=== PATIENT | female | born 1950 | race Caucasian/White ===

== ENCOUNTER 2019-01-16 16:22 | Emergency (ER) | payer MEDICARE ==
[~2019-01-16] VITALS: Ht 167.6 cm; Wt 108.9 kg
--- OUTSIDE RECORDS SUMMARY | 2019-01-16 16:24 | XMS REPORT ---
Author Author Es Dawson Organization eClinicalWorks Address Unknown Phone Unavailable Care Team Providers Care Supervisor Shuttle Veneering Name Role Phone Es Dawson CP Unavailable Allergies No Known Allergies Problems Problem Type Condition Code Onset Dates Condition Status Problem Vitamin D deficiency E55.9 Active Problem Knee pain, right M25.561 Active Problem Hip pain M25.559 Active Problem Other termite exterminator helper (current) drug therapy Z79.899 Active Problem Osteoporosis M81.0 Active Problem Polyarthralgia M25.50 Active Problem Osteoarthritis M19.90 Active Problem Knee pain M25.569 Active Medications No Known Medications Results No Known Results Summary Purpose eClinicalWorks Submission
--- OUTSIDE RECORDS SUMMARY | 2019-01-16 16:24 | XMS REPORT ---
Author Author Es Dawson [facility] eClinicalWorks Address Unknown Phone Unavailable Care Team Providers Care Wind Turbine Blade Repair Technician Name Role Phone Es Dawson CP Unavailable Allergies, Adverse Reactions, Alerts Substance Reaction Event Type Stimulant Laxative Info Not Available Drug Allergy Phenobarbital Info Not Available Drug Allergy Problems Problem Type Condition Code Onset Dates Condition Status Assessment Osteoarthritis M19.90 Active Problem Vitamin D deficiency E55.9 Active Assessment Osteoporosis M81.0 Active Problem Knee pain, right M25.561 Active Problem Hip pain M25.559 Active Problem Other halfway (current) drug therapy Z79.899 Active Problem Osteoporosis M81.0 Active Problem Polyarthralgia M25.50 Active Problem Osteoarthritis M19.90 Active Problem Knee pain M25.569 Active Medications Medication Code System Code Instructions Start Date End Date Status Dosage Prolia ND 68193539781 60 MG/ML Subcutaneous every 6 months Active as directed Vitamin C ND 57948172861 500 MG Orally Active as directed Calcium + D ND 01640601870 315-200 MG-UNIT Orally as neede Active 1 tablet with meals Voltaren Gel NDC 0 1% Transdermal Four times a day Jun 08, 2017 Jun 05, 2018 Active apply to affected area Iron ND 15606055757 325 (65 Fe) MG Orally Once a day Active 1 tablet Vital Signs Date/Time: December 07, 2017 BMI 38.84 Index Weight 248 lbs Height 67 in Temperature 97.8 F Cardiac Monitoring Heart Rate 76 /min Blood Pressure Diastolic 70 mm Hg Blood Pressure Systolic 126 mm Hg Results No Known Results Summary Purpose eClinicalWorks Submission
--- OUTSIDE RECORDS SUMMARY | 2019-01-16 16:24 | XMS REPORT ---
Author Author Es Dawson Organization eClinicalWorks Address Unknown Phone Unavailable Care Team Providers Care Aeroplane Pilot Name Role Phone Es Dawson CP Unavailable Allergies No Known Allergies Problems Problem Type Condition Code Onset Dates Condition Status Problem Vitamin D deficiency E55.9 Active Problem Knee pain, right M25.561 Active Problem Hip pain M25.559 Active Problem Other long term care pharmacist (current) drug therapy Z79.899 Active Problem Osteoporosis M81.0 Active Problem Polyarthralgia M25.50 Active Problem Osteoarthritis M19.90 Active Problem Knee pain M25.569 Active Medications No Known Medications Results No Known Results Summary Purpose eClinicalWorks Submission
--- OUTSIDE RECORDS SUMMARY | 2019-01-16 16:24 | XMS REPORT ---
[facility] Address Unknown Phone Unavailable Care Team Providers Care Personnel Manager Name Role Phone Unavailable Unavailable Payers Payer Name Policy Type Policy Number Effective Date Expiration Date Problems This patient has no known problems. Allergies, Adverse Reactions, Alerts Allergy Name Allergy Type Status Severity Reaction(s) Onset Date Inactive Date Treating Clinician Comments phenobarbital DA Active ID 2016-02-07 00:00:00 chlorhexidine DA Active U 2016-02-07 00:00:00 CHLORAPREPS DA Active MO 2014-05-14 00:00:00 Medications This patient has no known medications. Results Test Description Test Time Test Comments Text Results Atomic Results Result Comments - XR L-SPINE 4 + VIEWS 2018-12-09 13:49:00 FAX: Fabrice Arrieta DO [phone] [place]: O St: REG FAX: Es Martinez MD [phone] Name: [facility] : 1950 Age/S: 68/F [address] Unit #: [id number] Loc: [place] [address] Phys: Es Dawson MD Acct: [id number] Dis Date: Status: REG CLI PHONE #: [phone] Exam Date: 12/09/2018 1038 FAX #: [phone] Reason: M81.0,M54.9,M19.0 EXAMS: CPT CODE: [id number] XR L-SPINE 4 + VIEWS 25145 COMPARISON: None provided. TECHNIQUE: 5 views of the lumbar spine FINDINGS: Bones: Five non-rib bearing lumbar vertebrae. Multilevel osteophytes. No compression fractures. No suspicious focal bone lesion. Alignment: No spondylolisthesis. Intervertebral discs: Multilevel disc height reduction. Facet joints: Multilevel hypertrophic changes in lumbar spine. SI joints: No significant abnormalities. Soft tissues: No abnormalities. IMPRESSION: Multilevel degenerative changes. No acute fractures. at 4333 Reported and signed by: Alfonso Graham M.D. CC: Fabrice Sharma DO; Es Dawson MD Technologist: Terrance NOVAK(R) Trnscrd Date/Time/By: 12/09/2018 (6418) : By: Reva Barnes Print D/T: S: 12/09/2018 (2894) PAGE 1 Signed Report
--- OUTSIDE RECORDS SUMMARY | 2019-01-16 16:24 | XMS REPORT ---
Author Author Es Dawson [facility] eClinicalWorks Address Unknown Phone Unavailable Care Team Providers Care Nurse Intern Name Role Phone Es Dawson Unavailable Allergies, Adverse Reactions, Alerts Substance Reaction Event Type Stimulant Laxative Info Not Available Drug Allergy Phenobarbital Info Not Available Drug Allergy Problems Problem Type Condition Code Onset Dates Condition Status Assessment Vitamin D deficiency E55.9 Active Problem Vitamin D deficiency E55.9 Active Assessment Osteoporosis M81.0 Active Assessment Knee pain, right M25.561 Active Problem Knee pain, right M25.561 Active Problem Hip pain M25.559 Active Problem Other manager long term care (current) drug therapy Z79.899 Active Problem Osteoporosis M81.0 Active Problem Polyarthralgia M25.50 Active Problem Osteoarthritis M19.90 Active Problem Knee pain M25.569 Active Medications Medication Code System Code Instructions Start Date End Date Status Dosage Vitamin D (Ergocalciferol) ND 18204687292 41592 UNIT Orally once a week Active 1 capsule Calcium + D ND 79213770823 315-200 MG-UNIT Orally as neede Active 1 tablet with meals Ergocalciferol NDC 08536790430 27783 UNIT Orally once a week Jun 08, 2017 Sep 06, 2017 Active 1 capsule Prolia ND 17854125632 60 MG/ML Subcutaneous every 6 months Active as directed Voltaren Gel NDC 0 1% Transdermal Four times a day Jun 08, 2017 Active apply to affected area Vital Signs Date/Time: Jun 08, 2017 BMI 37.68 Index Weight 240.6 lbs Height 67 in Temperature 97.4 F Cardiac Monitoring Heart Rate 74 /min Blood Pressure Diastolic 74 mm Hg Blood Pressure Systolic 126 mm Hg Results Name Result Date Reference Range Unit Abnormality Flag COMPREHENSIVE METABOLIC PANEL W/EGFR ----CALCIUM 9.4 47781925 8.6-10.4 mg/dL N ----CARBON DIOXIDE 28 20170606 20-31 mmol/L N ----ALT 11 85962933 6-29 U/L N ----CREATININE 0.93 20170606 0.50-0.99 mg/dL N ----AST 17 20170606 10-35 U/L N ----eGFR NON-AFR. TRISTANIAN 63 36242752 > OR=60 mL/min/1.73m2 N ----ALKALINE PHOSPHATASE 68 20170606 33-130 U/L N ----eGFR 73 20170606 > OR=60 mL/min/1.73m2 N ----BILIRUBIN, TOTAL 1.2 00977786 0.2-1.2 mg/dL N ----BUN/CREATININE RATIO NOT APPLICABLE 20170606 6-22 (calc) ----ALBUMIN/GLOBULIN RATIO 1.5 82456456 1.0-2.5 (calc) N ----SODIUM 142 20170606 135-146 mmol/L N ----GLOBULIN 2.7 96055373 1.9-3.7 g/dL (calc) N ----POTASSIUM 3.9 90146949 3.5-5.3 mmol/L N ----GLUCOSE 89 74508918 65-99 mg/dL N ----CHLORIDE 107 35951105 98-110 mmol/L N ----ALBUMIN 4.0 06248854 3.6-5.1 g/dL N ----UREA NITROGEN (BUN) 14 20170606 7-25 mg/dL N ----PROTEIN, TOTAL 6.7 20558112 6.1-8.1 g/dL N SED RATE BY MODIFIED WESTERGREN ----SED RATE BY MODIFIED WESTERGREN 19 32670327 < OR=30 mm/h N C-REACTIVE PROTEIN ----C-REACTIVE PROTEIN 0.8 63263102 <8.0 mg/L N CBC (INCLUDES DIFF/PLT) ----MCHC 31.8 54105009 32.0-36.0 g/dL L ----MCH 25.2 16442172 27.0-33.0 pg L ----PLATELET COUNT 320 04819644 140-400 Thousand/uL N ----RDW 13.8 08594436 11.0-15.0 % N ----BASOPHILS 0.6 90990291 % N ----ABSOLUTE NEUTROPHILS 4288 65378942 6100-5661 cells/uL N ----ABSOLUTE LYMPHOCYTES 1754 81862976 850-3900 cells/uL N ----MPV 9.5 80850789 7.5-12.5 fL N ----ABSOLUTE BASOPHILS 43 09861867 0-200 cells/uL N ----HEMATOCRIT 34.9 48039943 35.0-45.0 % L ----NEUTROPHILS 60.4 02231547 % N ----MCV 79.3 01723621 80.0-100.0 fL L ----RED BLOOD CELL COUNT 4.40 81708782 3.80-5.10 Million/uL N ----ABSOLUTE MONOCYTES 646 28446801 200-950 cells/uL N ----ABSOLUTE EOSINOPHILS 369 63443142 15-500 cells/uL N ----HEMOGLOBIN 11.1 54791183 11.7-15.5 g/dL L ----EOSINOPHILS 5.2 12687431 % N ----WHITE BLOOD CELL COUNT 7.1 85660509 3.8-10.8 Thousand/uL N ----LYMPHOCYTES 24.7 47674518 % N ----MONOCYTES 9.1 90874907 % N VITAMIN D, 25-HYDROXY, LC/MS/MS ----VITAMIN D, 25-OH, TOTAL 26 48856726 30-100 ng/mL L Summary Purpose eClinicalWorks Submission
--- OUTSIDE RECORDS SUMMARY | 2019-01-16 16:24 | XMS REPORT ---
Author Author Es Dawson [facility] eClinicalWorks Address Unknown Phone Unavailable Care Team Providers Care Traveling Representative Name Role Phone Es Dawson Unavailable Allergies, Adverse Reactions, Alerts Substance Reaction Event Type Stimulant Laxative Info Not Available Drug Allergy Phenobarbital Info Not Available Drug Allergy Problems Problem Type Condition Code Onset Dates Condition Status Assessment Osteoporosis M81.0 Active Problem Vitamin D deficiency E55.9 Active Assessment Right knee pain M25.561 Active Assessment Vitamin D deficiency E55.9 Active Assessment Other fdc (current) drug therapy Z79.899 Active Problem Knee pain, right M25.561 Active Problem Hip pain M25.559 Active Problem Other intermodal dispatcher (current) drug therapy Z79.899 Active Problem Osteoporosis M81.0 Active Problem Polyarthralgia M25.50 Active Problem Osteoarthritis M19.90 Active Problem Knee pain M25.569 Active Medications Medication Code System Code Instructions Start Date End Date Status Dosage Calcium + D [facility] 06112072009 315-200 MG-UNIT Orally as neede Active 1 tablet with meals Ergocalciferol [facility] 48771027705 88788 UNIT Orally once a week Jun 10, 2018 Active 1 capsule Prolia [facility] 20868863422 60 MG/ML Subcutaneous every 6 months Active as directed Vital Signs Date/Time: Jun 10, 2018 BMI 37.78 Index Weight 248.5 lbs Height 68 in Temperature 97.6 F Cardiac Monitoring Heart Rate 52 /min Blood Pressure Diastolic 70 mm Hg Blood Pressure Systolic 108 mm Hg Results Name Result Date Reference Range Unit Abnormality Flag VITAMIN D, 25-HYDROXY, LC/MS/MS ----VITAMIN D, 25-OH, TOTAL 22 43861789 30-100 ng/mL L CBC (INCLUDES DIFF/PLT) ----ABSOLUTE BASOPHILS 61 67508695 0-200 cells/uL N ----ABSOLUTE EOSINOPHILS 319 48560031 15-500 cells/uL N ----LYMPHOCYTES 24.5 33623870 % N ----NEUTROPHILS 62.6 22343218 % N ----PLATELET COUNT 271 47532419 140-400 Thousand/uL N ----EOSINOPHILS 4.2 29845246 % N ----RDW 12.3 05745410 11.0-15.0 % N ----MONOCYTES 7.9 59655739 % N ----MCHC 34.4 71906797 32.0-36.0 g/dL N ----MCH 29.1 61463694 27.0-33.0 pg N ----MCV 84.6 37921219 80.0-100.0 fL N ----ABSOLUTE NEUTROPHILS 4758 00385227 7706-7300 cells/uL N ----MPV 9.9 14756895 7.5-12.5 fL N ----ABSOLUTE MONOCYTES 600 26537401 200-950 cells/uL N ----ABSOLUTE LYMPHOCYTES 1862 25345791 850-3900 cells/uL N ----BASOPHILS 0.8 77229115 % N ----WHITE BLOOD CELL COUNT 7.6 21705401 3.8-10.8 Thousand/uL N ----RED BLOOD CELL COUNT 4.61 40760077 3.80-5.10 Million/uL N ----HEMOGLOBIN 13.4 26217721 11.7-15.5 g/dL N ----HEMATOCRIT 39.0 78310738 35.0-45.0 % N COMPREHENSIVE METABOLIC PANEL W/EGFR ----SODIUM 140 87611441 135-146 mmol/L N ----BUN/CREATININE RATIO NOT APPLICABLE 91243143 6-22 (calc) ----CHLORIDE 102 04342475 98-110 mmol/L N ----POTASSIUM 4.3 41676648 3.5-5.3 mmol/L N ----CALCIUM 9.2 98120654 8.6-10.4 mg/dL N ----PROTEIN, TOTAL 6.7 01773832 6.1-8.1 g/dL N ----CARBON DIOXIDE 30 53032823 20-32 mmol/L N ----ALBUMIN/GLOBULIN RATIO 1.3 69615457 1.0-2.5 (calc) N ----eGFR NON-AFR. BRAZILIAN 64 78812063 > OR=60 mL/min/1.73m2 N ----BILIRUBIN, TOTAL 1.2 20180606 0.2-1.2 mg/dL N ----eGFR 75 20180606 > OR=60 mL/min/1.73m2 N ----UREA NITROGEN (BUN) 16 20180606 7-25 mg/dL N ----ALBUMIN 3.8 20180606 3.6-5.1 g/dL N ----GLOBULIN 2.9 20180606 1.9-3.7 g/dL (calc) N ----CREATININE 0.91 20180606 0.50-0.99 mg/dL N ----ALT 8 20180606 6-29 U/L N ----GLUCOSE 114 20180606 65-139 mg/dL N ----ALKALINE PHOSPHATASE 103 20180606 33-130 U/L N ----AST 13 20180606 10-35 U/L N Summary Purpose eClinicalWorks Submission
--- OUTSIDE RECORDS SUMMARY | 2019-01-16 16:24 | XMS REPORT ---
Author Author Es Dawson Organization eClinicalWorks Address Unknown Phone Unavailable Care Team Providers Care Mapper Name Role Phone Es Dawson CP Unavailable Allergies No Known Allergies Problems Problem Type Condition Code Onset Dates Condition Status Problem Vitamin D deficiency E55.9 Active Problem Knee pain, right M25.561 Active Problem Hip pain M25.559 Active Problem Other usp (current) drug therapy Z79.899 Active Problem Osteoporosis M81.0 Active Problem Polyarthralgia M25.50 Active Problem Osteoarthritis M19.90 Active Problem Knee pain M25.569 Active Medications No Known Medications Results No Known Results Summary Purpose eClinicalWorks Submission
--- OUTSIDE RECORDS SUMMARY | 2019-01-16 16:24 | XMS REPORT ---
Author Author Es Dawson Organization eClinicalWorks Address Unknown Phone Unavailable Care Team Providers Care Financial Sales Assistant Name Role Phone Es Dawson CP Unavailable Allergies, Adverse Reactions, Alerts Substance Reaction Event Type Stimulant Laxative Info Not Available Drug Allergy Phenobarbital Info Not Available Drug Allergy Problems Problem Type Condition Code Onset Dates Condition Status Problem Osteoarthritis M19.90 Active Problem Vitamin D deficiency E55.9 Active Assessment Back pain M54.9 Active Assessment Osteoarthritis M19.90 Active Assessment Osteoporosis M81.0 Active Problem Other group home (current) drug therapy Z79.899 Active Problem Knee pain, right M25.561 Active Problem Back pain M54.9 Active Problem Osteoporosis M81.0 Active Problem Polyarthralgia M25.50 Active Problem Hip pain M25.559 Active Problem Knee pain M25.569 Active Medications Medication Code System Code Instructions Start Date End Date Status Dosage Diclofenac Sodium ND 73777383703 1 Active APPLY TO THE AFFECTED AREA FOUR TIMES DAILY FOR 30 DAYS Calcium + D ND 98856083297 315-200 MG-UNIT Orally as neede Active 1 tablet with meals Prolia ND 54080494275 60 MG/ML Subcutaneous every 6 months Active as directed Ergocalciferol ND 68061661770 41535 UNIT Orally once a week Jun 10, 2018 Active 1 capsule Vital Signs Date/Time: December 09, 2018 BMI 40.27 Index Weight 264.9 lbs Height 68 in Temperature 97.2 F Cardiac Monitoring Heart Rate 60 /min Blood Pressure Diastolic 76 mm Hg Blood Pressure Systolic 120 mm Hg Results No Known Results Summary Purpose eClinicalWorks Submission
--- OUTSIDE RECORDS SUMMARY | 2019-01-16 16:24 | XMS REPORT ---
Author Author Es Dawson Organization eClinicalWorks Address Unknown Phone Unavailable Care Team Providers Care Machine Room Engineer Name Role Phone Es Dawson CP Unavailable Allergies No Known Allergies Problems Problem Type Condition Code Onset Dates Condition Status Problem Vitamin D deficiency E55.9 Active Problem Knee pain, right M25.561 Active Problem Hip pain M25.559 Active Problem Other group home (current) drug therapy Z79.899 Active Problem Osteoporosis M81.0 Active Problem Polyarthralgia M25.50 Active Problem Osteoarthritis M19.90 Active Problem Knee pain M25.569 Active Medications Medication Code System Code Instructions Start Date End Date Status Dosage Vitamin D [facility] 06095492669 50,000 Orally Once a week November 29, 2018 Active 1 capsule Results No Known Results Summary Purpose eClinicalWorks Submission
--- OUTSIDE RECORDS SUMMARY | 2019-01-16 16:24 | XMS REPORT | Continuity of Care Document ---
Author Author [facility] Address Unknown Phone Unavailable Problems Problem Status Onset Date Classification Date Reported Comments Source Vitamin D deficiency Active Problem 12/13/2018 Carlos Eduardo Calderon Knee pain, right Active Problem 12/13/2018 Carlos Eduardo Calderon Hip pain Active Problem 12/13/2018 Carlos Eduardo Calderon Other rodent exterminator drug therapy Active Problem 12/13/2018 Carlos Eduardo Calderon Osteoporosis Active Diagnosis 12/13/2018 Carlos Eduardo Calderon Polyarthralgia Active Problem 12/13/2018 Carlos Eduardo Calderon Osteoarthritis Active Problem 12/13/2018 Carlos Eduardo Calderon Knee pain Active Problem 12/13/2018 Carlos Eduardo Calderon Right knee pain Active Diagnosis 06/18/2018 Carlos Eduardo Calderon Back pain Active Diagnosis 12/13/2018 Carlos Eduardo Calderon Medications Medication Details Route Status Patient Instructions Ordering Provider Order Date Source Vitamin D 1 capsule Orally Active 50,000 Orally Once a week [place] 11/29/2018 Carlos Eduardo Calderon Ergocalciferol 1 capsule Orally Active 78591 UNIT Orally once a week [place] 06/10/2018 Carlos Eduardo Calderon Voltaren Gel apply to affected area Transdermal Active 1% Transdermal Four times a day [place] 06/08/2017 Carlos Eduardo Calderon Ergocalciferol 1 capsule Orally Active 02916 UNIT Orally once a week [place] 06/08/2017 Carlos Eduardo Calderon Prolia as directed Subcutaneous Active 60 MG/ML Subcutaneous every 6 months [place] Carlos Eduardo Calderon Vitamin C as directed Orally Active 500 MG Orally [place] Carlos Eduardo Calderon Calcium + D 1 tablet with meals Orally Active 315-200 MG-UNIT Orally as neede [place] Carlos Eduardo Calderon Iron 1 tablet Orally Active 325 (65 Fe) MG Orally Once a day [place] Carlos Eduardo Calderon Vitamin D (Ergocalciferol) 1 capsule Orally Active 42170 UNIT Orally once a week [place] Carlos Eduardo Calderon Diclofenac Sodium APPLY TO THE AFFECTED AREA FOUR TIMES DAILY FOR 30 DAYS NA Active 1 [place] Carlos Eduardo Calderon Allergies, Adverse Reactions, Alerts Substance Category Reaction Severity Reaction type Status Date Reported Comments Source Stimulant Laxative Adverse Reaction Info Not Available Adverse Reaction Active 12/09/2018 Carlos Eduardo Calderon Phenobarbital Adverse Reaction Info Not Available Adverse Reaction Active 12/09/2018 Carlos Eduardo Calderon Immunizations Immunization Date Given Site Status Last Updated Comments Source Results Order Name Results Value Reference Range Date Interpretation Comments Source Vital Signs Vital Sign Value Date Comments Source Weight 264.9 12/09/2018 Carlos Eduardo Calderon Height 68 12/09/2018 Carlos Eduardo Calderon Temperature Oral (F) 97.2 F 12/09/2018 Carlos Eduardo Calderon Heart Rate 60 12/09/2018 Carlos Eduardo Calderon Diastolic (mm Hg) 76 12/09/2018 Carlos Eduardo Calderon Systolic (mm Hg) 120 12/09/2018 Carlos Eduardo Calderon Weight 248.5 06/10/2018 Carlos Eduardo Calderon Height 68 06/10/2018 Carlos Eduardo Calderon Temperature Oral (F) 97.6 F 06/10/2018 Carlos Eduardo Calderon Heart Rate 52 06/10/2018 Carlos Eduardo Calderon Diastolic (mm Hg) 70 06/10/2018 Carlos Eduardo Calderon Systolic (mm Hg) 108 06/10/2018 Carlos Eduardo Calderon Weight 248 12/07/2017 Carlos Eduardo Calderon Height 67 12/07/2017 Carlos Eduardo Calderon Temperature Oral (F) 97.8 F 12/07/2017 Carlos Eduardo Calderon Heart Rate 76 12/07/2017 Carlos Eduardo Calderon Diastolic (mm Hg) 70 12/07/2017 Carlos Eduardo Calderon Systolic (mm Hg) 126 12/07/2017 Carlos Eduardo Calderon Weight 240.6 06/08/2017 Carlos Eduardo Calderon Height 67 06/08/2017 Carlos Eduardo Calderon Temperature Oral (F) 97.4 F 06/08/2017 Carlos Eduardo Calderon Heart Rate 74 06/08/2017 Carlos Eduardo Calderon Diastolic (mm Hg) 74 06/08/2017 Carlos Eduardo Calderon Systolic (mm Hg) 126 06/08/2017 Carlos Eduardo Calderon Encounters Location Location Details Encounter Type Encounter Number Reason For Visit Attending Provider ADM Date DC Date Status Source Procedures Procedure Code Date Perfomer Comments Source
--- OUTSIDE RECORDS SUMMARY | 2019-01-16 16:24 | XMS REPORT ---
Author Author Es Dawson Organization eClinicalWorks Address Unknown Phone Unavailable Care Team Providers Care Break Up Worker Name Role Phone Es Dawson CP Unavailable Allergies No Known Allergies Problems Problem Type Condition Code Onset Dates Condition Status Problem Vitamin D deficiency E55.9 Active Problem Knee pain, right M25.561 Active Problem Hip pain M25.559 Active Problem Other termite control servicer (current) drug therapy Z79.899 Active Problem Osteoporosis M81.0 Active Problem Polyarthralgia M25.50 Active Problem Osteoarthritis M19.90 Active Problem Knee pain M25.569 Active Medications No Known Medications Results No Known Results Summary Purpose eClinicalWorks Submission
--- NOTE | 2019-01-16 17:32 | Diagnostic Imaging Report ---
Right complete knee. CPT CODE: 14612. INDICATION: Unable to bear weight COMPARISON: None FINDINGS: No evidence of acute fracture or dislocation. Moderate narrowing and osteophytosis of the patellofemoral compartment and medial compartment. There is prominence of the tibial spines. Mild narrowing of the lateral compartment. No joint effusion. An ossicle in the anterior aspect of the joint space measures 5 mm and is suggestive of a loose body. There is no evidence of donor site. IMPRESSION: Moderate osteoarthritis. No joint effusion. Suspected loose body. No acute fracture or dislocation. Signed by: Dr. Jaren Goldstein MD on 01/16/2019 5:29 PM
[2019-01-16 18:22] VITALS: BP 157/80
[2019-01-16] MEDS ORDERED: PREDNISONE 20 MG TAB PO ONE (18:30)
[2019-01-16] MEDS ORDERED: PREDNISONE20 MG PO (18:33)
[2019-01-16] MEDS ORDERED: TYLENOL WITH C1 EACH PO (18:36)
== END 2019-01-16 18:59 | disposition home or self-care (01) ==
LOC: FSED 16:22
DX: M25.561 Pain in right knee (principal); M17.11 Unilateral primary osteoarthritis, right knee
CPT/HCPCS: 73562; 99283; J7512

== ENCOUNTER 2019-11-20 12:09 | Emergency (ER) | payer OTHER, MEDICARE ==
[~2019-11-20] VITALS: Ht 170.2 cm; Wt 109.4 kg
[~2019-11-20 12:09] MED LIST: PREDNISONE20 MG PO; TYLENOL WITH C1 EACH PO
[2019-11-20] MEDS ORDERED: TYLENOL # 31 EA PO (12:44)
[2019-11-20] MEDS ORDERED: CYCLOBENZAPRINE10 MG PO (12:48)
[2019-11-20 13:05] VITALS: BP 141/73
== END 2019-11-20 13:01 | disposition home or self-care (01) ==
LOC: FSED 12:09
DX: S20.212A Contusion of left front wall of thorax, initial encounter (principal); S16.1XXA Strain of muscle, fascia and tendon at neck level, initial encounter; M25.512 Pain in left shoulder; M25.511 Pain in right shoulder; V43.52XA Car driver injured in collision with other type car in traffic accident, initial encounter; Y92.488 Other paved roadways as the place of occurrence of the external cause
CPT/HCPCS: 99282

== ENCOUNTER → 2024-02-01 | Day surgery (SDC) | payer MEDICARE ==
[2024-01-30 15:33] LABS: BASOPHILS # (AUTO) 0.1 (0.0-0.1); BASOPHILS % 0.7 % (0.0-1.0); EOSINOPHILS # (AUTO) 0.4 (0.0-0.4); EOSINOPHILS % 4.9 % (0.0-6.0); HEMATOCRIT 35.8 % (34.2-44.1); HEMOGLOBIN 10.3 g/dL (12.0-16.0); LYMPHOCYTES # (AUTO) 1.7 (1.0-3.2); LYMPHOCYTES % 22.1 % (18.0-39.1); MEAN CORPUSCULAR HEMOGLOBIN 24.1 pg (28-32); MEAN CORPUSCULAR HGB CONC 28.8 g/dL (31-35); MEAN CORPUSCULAR VOLUME 83.6 fL (81-99); MONOCYTES # (AUTO) 0.7 (0.2-0.8); MONOCYTES % 9.2 % (4.4-11.3); NEUTROPHILS # (AUTO) 4.7 (2.1-6.9); NEUTROPHILS % 62.3 % (38.7-80.0); PLATELET COUNT 276 x10e3/uL (140-360); RED BLOOD COUNT 4.28 x10e6/uL (3.6-5.1); RED CELL DISTRIBUTION WIDTH 20.3 % (11.7-14.4); WHITE BLOOD COUNT 7.57 x10e3/uL (4.8-10.8)
[2024-01-30 16:02] LABS: ANION GAP 15.7 mmol/L (8-16); CALCIUM 9.1 mg/dL (8.4-10.2); CREATININE, SERUM 0.83 mg/dL (0.57-1.11); POTASSIUM 3.7 mmol/L (3.5-5.1)
[~2024-02-01] MED LIST changes: +ACETAMINOPHEN-1 EAC4 PO; +CARAFATE1 GM PO; +CYCLOBENZAPRINE10 MG PO; +FENTANYL CITRATE/PF 100MCG/2 ML INJ ONE; +HEPARIN SOD (PORCINE) 5,000 UNIT/ML VIAL ONE; +IRON INFUSIONS IV; +LIDOCAINE HCL 1% LOCAL INJ 20 ML VIAL ONE; +LIDOCAINE HCL 2% LOCAL INJ 5 ML SDV VIAL INJ ONE; +MIDAZOLAM HCL 2 MG/2 ML VIAL ONE; +ONDANSETRON HCL INJ 2MG/ML 2ML 2 MG/ML VIAL ONE; +PANTOPRAZOLE SO40 MG PO; +PROPOFOL IV EMULSION 10 MG/ML 20 ML VIAL ONE; +PROTONIX20 MG PO; +SODIUM CHLORIDE 0.9% 500ML 500 ML ONE; +TYLENOL # 31 EA PO
[2024-02-01] MEDS: LACTATED RINGER'S 1,000 ML ONE (06:54)
[2024-02-01] MEDS: FENTANYL CITRATE/PF 100MCG/2 ML INJ ONE (10:27)
[2024-02-01 11:05] VITALS: BP 123/78; PULSE 60; RESP 16; O2SAT 97
== END | disposition home or self-care (01) ==
LOC: OR 06:20
PROVIDERS: ATTEND Surgery
DX: C18.2 Malignant neoplasm of ascending colon (principal); Z45.2 Encounter for adjustment and management of vascular access device; I10 Essential (primary) hypertension; K21.9 Gastro-esophageal reflux disease without esophagitis; R56.9 Unspecified convulsions; Z88.8 Allergy status to other drugs, medicaments and biological substances; Z01.810 Encounter for preprocedural cardiovascular examination; Z01.812 Encounter for preprocedural laboratory examination; Z01.818 Encounter for other preprocedural examination; Z79.899 Other long term (current) drug therapy
CPT/HCPCS: 36415; 36561; 71046; 76000; 80048; 85025; 93005; C1751; J0690; J1644; J2001 ×2; J2250; J2405; J2704; J3010; J7040; J7121